=== PATIENT | female | born 1950 | race Caucasian/White ===

== ENCOUNTER → 2017-09-17 | Outpatient (CLI) | payer OTHER ==
--- NOTE | 2017-09-17 19:35 | EKG ---
Date Performed: 09/17/2017 Time Performed: 11:55:00 PTAGE: 67 years EKG: Sinus rhythm NONSPECIFIC T-WAVE ABNORMALITY BORDERLINE ECG Since the PREVIOUS TRACING , no significant change noted J PREVIOUS TRACIN05/14/2001 13.34 DOCTOR: Emmanuel Roche Interpretating Date/Time 09/17/2017 19:33:28
== END ==
LOC: HCAV 11:43
PROVIDERS: ATTEND Family Medicine
DX: Z00.01 Encounter for general adult medical examination with abnormal findings (principal); R94.31 Abnormal electrocardiogram [ECG] [EKG]
CPT/HCPCS: 93005